=== PATIENT | female | born 1950 | race Caucasian/White ===

== ENCOUNTER → 2017-01-08 | Outpatient (CLI) | payer MEDICARE, OTHER ==
[~2017-01-08] MED LIST: ASPIRIN 81M81 MG/TA2 PO; CIPRO 500MG TA500 MG PO; CRESTOR; CRESTOR 10MG10 MG PO; CYMBALTA; CYMBALTA 60MG60 MG PO; D-31000 IU PO; DIOVAN HCT 12.51 TA2; DIOVAN HCT 25 M1 TA1 PO; DIOVAN HCT 25 M1 TAB PO; ELITE MAGNESIUM1 TAB PO; FISH OIL1000 MG PO; IRON90 MG PO; MOBIC 7.5MG7.5 MG PO; PHENERGAN 25 TA25 MG PO; TYLENOL EXTRA500 M1 PO; TYLENOL PM EXTR1 TA1 PO; VITAMIN E1000 U/CAP PO; WOMEN'S DAILY F1 TAB PO; ZOFRAN ODT8 MG PO; ZYLOPRIM 300MG300 MG PO; [UNRECOGNIZED DRUG - OTHER] IM
== END ==
LOC: MC.RAD 10:43
DX: Z12.31 Encounter for screening mammogram for malignant neoplasm of breast (principal)

== ENCOUNTER 2017-02-03 05:48 | Emergency (ER) | payer MEDICARE, OTHER ==
[~2017-02-03] VITALS: Ht 152.4 cm; Wt 90.9 kg
[2017-02-03 05:50] VITALS: TEMP 98
[2017-02-03 06:40] LABS: MEAN CELL VOLUME 90 fl (80.0-100.0); MEAN CORPUSCULAR HGB CONC 33 g/dl (33.0-37.0); MEAN PLATELET VOLUME 10.2 fl (7.4-10.4); PLATELET COUNT 294 K/mm3 (130-400); RED BLOOD COUNT 3.64 M/mm3 (4.10-5.30); REDCELL DISTRIBUTION WIDTH-CV 14.9 % (11.5-14.5); WHITE BLOOD COUNT 15.8 K/mm3 (4.8-10.8)
[2017-02-03 06:45] LABS: HEMATOCRIT 32.8 % (37.0-47.0); HEMOGLOBIN 10.8 g/dl (12.5-16.0); MEAN CORPUSCULAR HEMOGLOBIN 30 pg (27.0-31.0)
[2017-02-03 06:46] LABS: ADD PATHOLOGY DIFF REVIEW NO
[2017-02-03 06:51] LABS: ADJUSTED CALCIUM 9.1 mg/dL (8.4-10.2); ALBUMIN 4.5 gm/dL (3.5-5.0); BILIRUBIN,TOTAL 0.8 mg/dL (0.0-1.0); CALCIUM 9.5 mg/dL (8.4-10.2); CREATININE, serum 1.22 mg/dL (0.52-1.25); POTASSIUM 4.5 mmol/L (3.4-5.0); TOTAL PROTEIN 7.2 gm/dL (6.4-8.2)
[2017-02-03 07:42] LABS: BAND 26 % (0-10); METAMYELOCYTE 1 % (0-0); NEUTROPHILS 66 % (42.0-75.2); TOTAL CELLS COUNTED 100
[2017-02-03 07:43] LABS: PLATELET ESTIMATE NORMAL (NORMAL)
[2017-02-03] MEDS ORDERED: PHENERGAN 25 TA25 MG PO (07:58)
[2017-02-03 08:12] LABS: TOXIC GRANULATION PRESENT
[2017-02-03 08:20] LABS: PH 5 (5-8); SQUAMOUS EPITHELIAL 0-2 /hpf; URINE APPEARANCE Clear; URINE BACTERIA None Seen /hpf; URINE BILIRUBIN Negative (NEGATIVE); URINE BLOOD Negative (NEGATIVE); URINE COLOR Yellow; URINE GLUCOSE Negative (NEGATIVE); URINE KETONE Negative (NEGATIVE); URINE RBC 0-2 /hpf; URINE UROBILINOGEN Negative (NEGATIVE); URINE WBC 0-2 /hpf
[2017-02-03 10:23] VITALS: BP 124/66; PULSE 87
== END 2017-02-03 10:25 | disposition home or self-care (01) ==
LOC: COL.ER 05:48
PROVIDERS: Emergency Medicine
DX: R11.10 Vomiting, unspecified (principal); T40.2X5A Adverse effect of other opioids, initial encounter; R10.84 Generalized abdominal pain; I12.9 Hypertensive chronic kidney disease with stage 1 through stage 4 chronic kidney disease, or unspecified chronic kidney disease; N18.9 Chronic kidney disease, unspecified; Z96.659 Presence of unspecified artificial knee joint; Z86.39 Personal history of other endocrine, nutritional and metabolic disease
CPT/HCPCS: J1885; J2060; J2405; J2550; J7030; J7040

== ENCOUNTER 2017-02-05 12:00 | Observation (INO) | payer MEDICARE, OTHER ==
[~2017-02-05] VITALS: Ht 154.9 cm; Wt 90.5 kg
[2017-02-05 14:41] LABS: BASO % 0.2 % (0.0-2.0); EOS # 0.3 (0.0-0.7); EOS % 2.3 % (0-4.0); GRAN # 8.4 (1.4-6.5); HEMATOCRIT 38.6 % (37.0-47.0); HEMOGLOBIN 12.5 g/dl (12.5-16.0); LYMPH # 1.1 (1.2-3.4); LYMPH % 10.1 % (20.0-51.0); MEAN CELL VOLUME 91 fl (80.0-100.0); MEAN CORPUSCULAR HEMOGLOBIN 29 pg (27.0-31.0); MEAN CORPUSCULAR HGB CONC 32 g/dl (33.0-37.0); MEAN PLATELET VOLUME 10.3 fl (7.4-10.4); MONO # 0.8 (0.1-0.6); MONO % 7.6 % (1.7-9.3); PLATELET COUNT 345 K/mm3 (130-400); RED BLOOD COUNT 4.26 M/mm3 (4.10-5.30); REDCELL DISTRIBUTION WIDTH-CV 14.6 % (11.5-14.5); WHITE BLOOD COUNT 10.7 K/mm3 (4.8-10.8)
[2017-02-05 15:04] LABS: ADJUSTED CALCIUM 9.2 mg/dL (8.4-10.2); ALANINE AMINOTRANSFERASE 32 U/L (9-52); ALBUMIN 4.1 gm/dL (3.5-5.0); ALKALINE PHOSPHATASE 78 U/L (50-136); ANION GAP 14 mmol/L (7-16); BILIRUBIN,TOTAL 1.1 mg/dL (0.0-1.0); BLOOD UREA NITROGEN 28 mg/dL (7-17); C-REACTIVE PROTEIN 2.3 mg/dL (0.0-0.9); CALCIUM 9.3 mg/dL (8.4-10.2); CARBON DIOXIDE 21 mmol/L (22-30); CHLORIDE 104 mmol/L (98-107); CREATININE, serum 1.06 mg/dL (0.52-1.25); GLUCOSE 83 mg/dL (74-106); LIPASE 119 U/L (23-300); POTASSIUM 4.1 mmol/L (3.4-5.0); SODIUM 140 mmol/L (137-145); TOTAL PROTEIN 7.1 gm/dL (6.4-8.2)
[2017-02-05 15:14] LABS: TROPONIN-I < 0.012 ng/mL (0.000-0.034)
[2017-02-05] MEDS ORDERED: NORVASC 5MG5 MG/TAB PO (16:20)
[2017-02-05 17:15] VITALS: BP 132/69; PULSE 77; TEMP 98.3
[2017-02-05] MEDS ORDERED: ZOFRAN ODT4 MG PO (17:37)
[2017-02-05 19:38] VITALS: BP 153/83; PULSE 84; TEMP 98.7
[2017-02-06 00:02] VITALS: BP 142/70; PULSE 79; TEMP 98.1
[2017-02-06 03:37] VITALS: BP 143/71; PULSE 76; TEMP 98.6
[2017-02-06 09:32] VITALS: BP 133/65; PULSE 76; TEMP 98.3
[2017-02-06 12:09] VITALS: BP 147/65; PULSE 76; TEMP 98.6
[2017-02-06 15:42] VITALS: BP 140/68; PULSE 83; TEMP 98.9
[2017-02-06] MEDS ORDERED: ZANTAC 150MG T150 MG PO (16:01)
== END 2017-02-06 17:00 | disposition home or self-care (01) ==
LOC: COL.ER 12:00 → MEDICAL 16:02
PROVIDERS: Emergency Medicine
DX: E86.0 Dehydration (principal); R11.2 Nausea with vomiting, unspecified; R19.7 Diarrhea, unspecified; N83.8 Other noninflammatory disorders of ovary, fallopian tube and broad ligament; K44.9 Diaphragmatic hernia without obstruction or gangrene; Z96.652 Presence of left artificial knee joint; I10 Essential (primary) hypertension; G89.29 Other chronic pain; M54.5 Low back pain; Z90.49 Acquired absence of other specified parts of digestive tract; Z96.89 Presence of other specified functional implants
CPT/HCPCS: G0378; J1650; J1885; J2405; J2550; J7030; Q9967

== ENCOUNTER → 2017-03-06 | Outpatient (CLI) | payer MEDICARE, OTHER ==
[~2017-03-06] MED LIST changes: +NORVASC 5MG5 MG/TAB PO; +ZANTAC 150MG T150 MG PO; +ZOFRAN ODT4 MG PO
== END ==
LOC: COL.RAD 07:17
DX: N83.8 Other noninflammatory disorders of ovary, fallopian tube and broad ligament (principal)

== ENCOUNTER 2017-12-23 20:25 | Emergency (ER) | payer MEDICARE, OTHER ==
[~2017-12-23] VITALS: Ht 154.9 cm; Wt 90.9 kg
[2017-12-23 20:27] VITALS: TEMP 99.6
[2017-12-23 20:58] LABS: BASO % 0.3 % (0.0-2.0); EOS # 0.4 (0.0-0.7); EOS % 3.8 % (0-4.0); GRAN # 8.4 (1.4-6.5); GRAN % 74.5 % (42.2-75.2); HEMATOCRIT 40.3 % (37.0-47.0); HEMOGLOBIN 13.2 g/dl (12.5-16.0); LYMPH # 1.3 (1.2-3.4); MEAN CELL VOLUME 87 fl (80.0-100.0); MEAN CORPUSCULAR HEMOGLOBIN 29 pg (27.0-31.0); MEAN CORPUSCULAR HGB CONC 33 g/dl (33.0-37.0); MEAN PLATELET VOLUME 9.2 fl (7.4-10.4); MONO # 1.1 (0.1-0.6); PLATELET COUNT 350 K/mm3 (130-400); RED BLOOD COUNT 4.62 M/mm3 (4.10-5.30); REDCELL DISTRIBUTION WIDTH-CV 14.6 % (11.5-14.5)
[2017-12-23 21:07] LABS: ALBUMIN 4.6 gm/dL (3.5-5.0); CALCIUM 9.7 mg/dL (8.4-10.2); CREATININE, serum 1.56 mg/dL (0.52-1.25); POTASSIUM 4.3 mmol/L (3.4-5.0); TOTAL PROTEIN 8.2 gm/dL (6.4-8.2)
[2017-12-23 21:32] LABS: ARTERIAL BLD GAS O2 SATURATION 96.8 % (92-100); ARTERIAL BLD GAS TCO2 CT 18.7; ARTERIAL BLOOD GAS BASE EXCESS -1.9 (-2-2); ARTERIAL BLOOD GAS HCO3 18.1 meq/L (22-26); ARTERIAL BLOOD GAS PO2 81.3 mmHg (80-100); ARTERIAL BLOOD GAS pH 7.55 (7.35-7.45)
[2017-12-23] MEDS ORDERED: ZOFRAN ODT4 MG PO (21:58)
[2017-12-23 22:37] VITALS: BP 122/74; PULSE 91
== END 2017-12-23 22:38 | disposition home or self-care (01) ==
LOC: COL.ER 20:25
PROVIDERS: Family Medicine
DX: R11.2 Nausea with vomiting, unspecified (principal); K21.9 Gastro-esophageal reflux disease without esophagitis; Z90.49 Acquired absence of other specified parts of digestive tract; Z90.710 Acquired absence of both cervix and uterus; Z79.891 Long term (current) use of opiate analgesic
CPT/HCPCS: J1170; J2405; J7030; Q9967

== ENCOUNTER → 2018-01-09 | Outpatient (CLI) | payer MEDICARE, OTHER | LOC: MC.RAD 09:40 | DX: Z12.31 Encounter for screening mammogram for malignant neoplasm of breast (principal); Z98.890 Other specified postprocedural states ==

== ENCOUNTER → 2019-03-11 | Outpatient (CLI) | payer MEDICARE, OTHER | LOC: MC.RAD 09:37 | DX: Z12.31 Encounter for screening mammogram for malignant neoplasm of breast (principal); Z98.82 Breast implant status ==

== ENCOUNTER → 2020-03-18 | Outpatient (CLI) | payer MEDICARE, OTHER | LOC: MC.RAD 03-15 09:15 | DX: Z12.31 Encounter for screening mammogram for malignant neoplasm of breast (principal) ==